=== PATIENT | male | born 1945 | race African-American/Black ===

== ENCOUNTER 2017-03-11 06:46 | Observation (INO) | payer OTHER ==
[~2017-03-11] VITALS: Ht 185.4 cm; Wt 100.0 kg
[2017-03-11] VITALS (10 sets, daily range): BP systolic 126–153; BP diastolic 58–95; PULSE 51–82; RESP 16–18; TEMP 97.7–99.4; O2SAT 92–97
[~2017-03-11 06:46] MED LIST: 1-ME1LIQ PO; APIX5TAB PO; LISI-360 PO; PROT40TA PO
--- NOTE | 2017-03-11 07:13 | PD ---
HPI Chief Complaint: Syncope/Near-Syncope Time Seen by Provider: 07:13 Travel History International Travel<30 days: No Contact w/Intl Traveler<30days: No Traveled to known affect area: No History of Present Illness HPI 71-year-old male came to the emergency room with history of lightheadedness and near syncopal episode this morning. Patient says he was up since 3:00 this morning going repeatedly to the bathroom to urinate. Patient says this happens to him when he drinks a lot of fluid. Also he was getting chills at night. This morning when he went to the bathroom again he got extremely lightheaded and almost passed out. He called for his who then called EMS. Patient denies of any syncopal episode. His temperature was 99.5 in triage. He says he feels weak currently. No history of chest pain. He has had a cough for a month or 2 now. No history of vomiting or diarrhea. No history of dysuria or hematuria. He is not on any diuretics. [facility] Past Medical History Narrative Medical List of his past medical, surgical, social and family history was reviewed from the nursing note. Hx Anticoagulant Therapy: Yes Atrial Fibrillation: Yes Heart Rhythm Problems: Yes (AFIB) Cardiac Catheterization: No Cardiovascular Problems: Yes High Cholesterol: No Congestive Heart Failure: No Diabetes: No Diminished Hearing: No GERD: Yes Hypertension: Yes Tetanus Vaccination: Unknown Influenza Vaccination: No Past Surgical History Coronary Artery Bypass Graft: No Other Surgery: Yes (FATTY TUMOR) Family History Family Myocardial Infarction: Yes Social History Alcohol Use: No Tobacco Use: No Substance Use: No Allergies-Medications (Allergen,Severity, Reaction): Coded Allergies: Penicillin (Verified Allergy, Severe, 03/11/17) Comments List of his allergies reviewed from the nursing note. Reported Meds & Prescriptions Reported Meds & Active Scripts Active Reported Pantoprazole (Pantoprazole Sodium) 40 Mg Tab 40 Mg PO DAILY Benzonatate 100 Mg Cap 100 Mg PO TID PRN Eliquis (Apixaban) 5 Mg Tab 5 Mg PO BID Amlodipine Besylate 1 Gm Powder 5 Mg PO DAILY Narrative Medication List of his home medications reviewed from the nursing note. Review of Systems Except as stated in HPI: all other systems reviewed are Neg Physical Exam Narrative GENERAL: Awake, alert, moderate distress SKIN: Focused skin assessment warm/dry. HEAD: Atraumatic. Normocephalic. EYES: Pupils equal and round. No scleral icterus. No injection or drainage. ENT: No nasal bleeding or discharge. Mucous membranes pink and moist. NECK: Trachea midline. No JVD. CARDIOVASCULAR: Regular rate and rhythm. No murmur appreciated. RESPIRATORY: No accessory muscle use. Clear to auscultation. Breath sounds equal bilaterally. GASTROINTESTINAL: Abdomen soft, non-tender, nondistended. Hepatic and splenic margins not palpable. MUSCULOSKELETAL: No obvious deformities. No clubbing. No cyanosis. No edema. NEUROLOGICAL: Awake and alert. No obvious cranial nerve deficits. Motor grossly within normal limits. Normal speech. PSYCHIATRIC: Appropriate mood and affect; insight and judgment normal. Data Data Last Documented VS Vital Signs Date Time Temp Pulse Resp B/P Pulse Ox O2 Delivery O2 Flow Rate FiO2 03/11/17 10:00 82 16 137/84 95 Room Air 03/11/17 06:49 99.4 Orders Electrocardiogram (03/11/17 07:18) Complete Blood Count With Diff (03/11/17 07:18) Comprehensive Metabolic Panel (03/11/17 07:18) Lactic Acid Sepsis Protocol (03/11/17 07:18) Urinalysis - C+S If Indicated (03/11/17 07:18) Blood Culture (03/11/17 07:18) Chest, Single Ap (03/11/17 07:18) Blood Glucose (03/11/17 07:18) Ecg Monitoring (03/11/17 07:18) Iv Access Insert/Monitor (03/11/17 07:18) Oximetry (03/11/17 07:18) Oxygen Administration (03/11/17 07:18) Troponin I (03/11/17 07:18) Sodium Chlorid 0.9% 500 Ml Inj (Ns 500 M (03/11/17 09:15) Ct Pulmonary Angiogram (03/11/17 ) Iohexol 350 Inj (Omnipaque 350 Inj) (03/11/17 10:07) Levofloxacin 500 Mg Premix Inj (Levaquin (03/11/17 11:00) Admit Order (Ed Use Only) (03/11/17 12:04) Labs Laboratory Tests Test 03/11/17 03/11/17 07:28 08:55 White Blood Count 6.3 TH/MM3 Red Blood Count 4.29 MIL/MM3 Hemoglobin 13.3 GM/DL Hematocrit 39.3 % Mean Corpuscular Volume 91.6 FL Mean Corpuscular Hemoglobin 31.0 PG Mean Corpuscular Hemoglobin 33.9 % Concent Red Cell Distribution Width 14.7 % Platelet Count 214 TH/MM3 Mean Platelet Volume 7.9 FL Neutrophils (%) (Auto) 85.7 % Lymphocytes (%) (Auto) 8.1 % Monocytes (%) (Auto) 5.8 % Eosinophils (%) (Auto) 0.2 % Basophils (%) (Auto) 0.2 % Neutrophils # (Auto) 5.4 TH/MM3 Lymphocytes # (Auto) 0.5 TH/MM3 Monocytes # (Auto) 0.4 TH/MM3 Eosinophils # (Auto) 0.0 TH/MM3 Basophils # (Auto) 0.0 TH/MM3 CBC Comment DIFF FINAL Differential Comment Sodium Level 141 MEQ/L Potassium Level 3.8 MEQ/L Chloride Level 106 MEQ/L Carbon Dioxide Level 26.6 MEQ/L Anion Gap 8 MEQ/L Blood Urea Nitrogen 19 MG/DL Creatinine 1.61 MG/DL Estimat Glomerular Filtration 51 ML/MIN Rate Random Glucose 99 MG/DL Lactic Acid Level 1.5 mmol/L Calcium Level 8.8 MG/DL Total Bilirubin 0.8 MG/DL Aspartate Amino Transf 15 U/L (AST/SGOT) Alanine Aminotransferase 19 U/L (ALT/SGPT) Alkaline Phosphatase 52 U/L Troponin I LESS THAN 0.02 NG/ML Total Protein 7.4 GM/DL Albumin 3.9 GM/DL Urine Color YELLOW Urine Turbidity CLEAR Urine pH 7.0 Urine Specific [place] 1.016 Urine Protein TRACE mg/dL Urine Glucose (UA) NEG mg/dL Urine Ketones NEG mg/dL Urine Occult Blood TRACE Urine Nitrite NEG Urine Bilirubin NEG Urine Urobilinogen LESS THAN 2.0 MG/DL Urine Leukocyte Esterase TRACE Urine RBC 3 /hpf Urine WBC 1 /hpf Urine Squamous Epithelial <1 /hpf Cells Urine Mucus FEW /lpf Microscopic Urinalysis Comment CULT NOT INDICATED MDM Medical Decision Making Medical Screen Exam Complete: Yes Emergency Medical Condition: Yes Medical Record Reviewed: Yes Interpretation(s) Twelve-lead EKG was reviewed by me. Normal sinus rhythm, left axis deviation, lateral and inferior T-wave inversions. Heart rate of 65 per minute. Differential Diagnosis UTI, sepsis, dehydration, electrolyte abnormality, pneumonia, PE Narrative Course 9:22 AM blood test results of back and patient has some renal insufficiency which could be from dehydration. He was given IV fluid 1 L bolus and I have ordered 500 cc more. White count has a left shift. I'm waiting for his UA and CT pulmonary angiogram to rule out PE. 11:45 AM I discussed with the who was now in the room. She explained to me that today she realized that patient was back and forth multiple times from the bathroom into the bedroom which is not unusual. But at one point she heard a thud and she went running to check on him and found him laying on the floor. He was not unconscious and his color was close to his normal. He was not extremely sweaty either. But she called 911 at that point. She also says four weeks ago when they were in the jainism he was sitting and slowly slumped over and passed out. At that time his eyes rolled back and he became extremely diaphoretic. Once again 911 was called and patient was taken to [facility]. He had CAT scan of his head and blood test done and eventually discharged from the ER with the diagnosis of sinusitis. He was given a course of Z-Rogelio which patient has finished. Patient has a process designer but he has not seen his process designer since the last event. is concerned because they were planning to go on a cruise on March 18 and she wants to make sure that he is okay. Given this story and the recent past history I am concerned if the patient has been having arrhythmia that is causing these events. Last time he was not admitted for any observation or any Holter monitoring. I have recommended that I would try to keep him in the hospital for at least 24-48 hour observation and the was thankful for that. Awaiting for the hospitalist to call back at this point. Patient's CAT scan of his chest did not show any PE but did show groundglass opacity in the right lower lobe and small one in right upper lobe. The concern is if this could be aspiration pneumonia which again would go in the fever of syncope/near syncope. Procedures EKG Prior to Arrival: No Diagnosis Primary Impression: Near syncope Additional Impressions: Pneumonia Qualified Code: J18.1 - Pneumonia of right lower lobe due to infectious organism Aspiration pneumonia Qualified Code: J69.0 - Aspiration pneumonia of right lower lobe, unspecified aspiration pneumonia type Admitting Information Admitting Physician Requests: Observation Scripts Levofloxacin (Levaquin)750 Mg Tmdywl131 Mg PO DAILY #7 TAB Prov:Brent Mtz DO 03/12/17 Clindamycin (Cleocin)150 Mg Cep212 Mg PO Q6HR #28 CAP Prov:Brent Mtz DO 03/12/17 Richar Haney MD Mar 11, 2017 07:13
[2017-03-11] MEDS ORDERED: AMLO1POW4 PO (07:40)
[2017-03-11] MEDS ORDERED: BENZ1CAP8 PO (07:40)
[2017-03-11] MEDS ORDERED: APIX5TAB PO (07:40)
[2017-03-11] MEDS ORDERED: PANT40TA3 PO (07:41)
[2017-03-11 07:43] LABS: AUTOMATED NEUTROPHIL # 5.4 TH/MM3 (1.8-7.7); BASOPHIL % 0.2 % (0.0-2.0); EOSINOPHIL % 0.2 % (0.0-4.0); HEMATOCRIT 39.3 % (39.0-51.0); HEMO FLAGS DIFF FINAL; LYMPH % 8.1 % (9.0-44.0); LYMPHOCYTE # 0.5 TH/MM3 (1.0-4.8); MEAN CELL VOLUME 91.6 FL (80.0-100.0); MEAN CORPUSCULAR HGB CONC 33.9 % (32.0-36.0); MONO % 5.8 % (0.0-8.0); NEUT % 85.7 % (16.0-70.0); PLATELET COUNT 214 TH/MM3 (150-450); RED BLOOD COUNT 4.29 MIL/MM3 (4.50-5.90); RED CELL DISTRIBUTION WIDTH 14.7 % (11.6-17.2); WHITE BLOOD COUNT 6.3 TH/MM3 (4.0-11.0)
--- NOTE | 2017-03-11 07:52 | RADRPT ---
EXAM DATE/TIME: 03/11/2017 07:40 [facility] COMPARISON: CHEST SINGLE AP, January 01, 2016, 17:33. INDICATIONS : Syncope. MEDICAL HISTORY : Stroke. Hypertension SURGICAL HISTORY : None. ENCOUNTER: Initial ACUITY: 1 day PAIN SCORE: 0/10 LOCATION: Bilateral chest FINDINGS: Portable AP view of the chest demonstrates a normal-sized cardiac silhouette. Lungs are underinflated with subtle linear opacities at the lung bases. No effusion, consolidation, or pneumothorax is ident ified. Bones and soft tissues demonstrate no acute finding. CONCLUSION: Underinflation with atelectasis at the lung bases. Otherwise, no acute cardiopulmonary abnormality is identified. Jonathan Saul MD on March 11, 2017 at 7:50 Board Certified Radiologist. This report was verified electronically.
[2017-03-11 07:58] LABS: ALT (GPT) 19 U/L (12-78); ANION GAP 8 MEQ/L (5-15); AST (GOT) 15 U/L (15-37); BICARBONATE 26.6 MEQ/L (21.0-32.0); BLOOD UREA NITROGEN 19 MG/DL (7-18); CHLORIDE 106 MEQ/L (98-107); GLOMERULAR FILTRATION RATE 51 ML/MIN (>89); POTASSIUM 3.8 MEQ/L (3.5-5.1); SODIUM (NA) 141 MEQ/L (136-145)
[2017-03-11 08:02] LABS: ALKALINE PHOSPHATASE 52 U/L (45-117); TOTAL BILIRUBIN ADULT 0.8 MG/DL (0.2-1.0)
[2017-03-11] MEDS ORDERED: SODIUM CHLORID 0.9% 500 ML INJ 500 ML IV ONE (09:15)
[2017-03-11 09:16] LABS: BLOOD, URINE TRACE (NEG); COMMENT (UR) CULT NOT INDICATED; CULTURE IF INDICATED CULT NOT INDICATED; GLUCOSE,URINE NEG (NEG); KETONE, URINE NEG (NEG); MUCUS URINE FEW /lpf (OCC); NITRITE,URINE NEG (NEG); SQUAMOUS EPITHELIAL CELL URINE <1 /hpf (0-5); URINE COLOR YELLOW (YELLW/STRAW)
[2017-03-11] MEDS ORDERED: IOHEXOL 350 MG/ML 10 ML VIAL (for RAD DIAG) IV ONE (10:07)
--- NOTE | 2017-03-11 10:33 | RADRPT ---
EXAM DATE/TIME: 03/11/2017 09:54 [facility] COMPARISON: No previous studies available for comparison. INDICATIONS : Weakness, dizziness, near-syncopal episode. IV CONTRAST: cc Omnipaque 350 (iohexol) IV RADIATION DOSE: 21.39 CTDIvol (mGy) MEDICAL HISTORY : Cardiovascular disease. Hypertension. Gastroesophageal reflux disease. SURGICAL HISTORY : None. ENCOUNTER: Initial ACUITY: 1 day PAIN SCALE: 0/10 LOCATION: chest TECHNIQUE: Volumetric scanning of the chest was performed using a pulmonary embolism protocol MIP images were re constructed. Using automated exposure control and adjustment of the mA and/or kV according to patien t size, radiation dose was kept as low as reasonably achievable to obtain optimal diagnostic quality images. DICOM format image data is available electronically for review and comparison. Follow-up recommendations for incidentally detected pulmonary nodules are based at a minimum on nodul e size and patient risk factors according to Fleischner Society Guidelines. FINDINGS: PULMONARY ARTERIES: No filling defects are seen in the pulmonary arteries through the segmental level. LUNGS: Diffuse patchy groundglass opacities involving the right lower lobe and small focal region of the rig ht upper lobe. Minimal ground glass opacities in the left lung base likely reflect volume loss. PLEURAE: There is no pleural thickening or pleural effusion. MEDIASTINUM: Calcified mediastinal hilar nodes consistent with prior granulomatous disease. Heart is normal in luis earance without significant pericardial effusion. MUSCULOSKELETAL: Within normal limits for patient age. MISCELLANEOUS: The visualized upper abdominal organs demonstrate no acute abnormality. CONCLUSION: 1. No CT evidence for pulmonary embolism to the subsegmental level as questioned. 2. Patchy diffuse ground glass opacities involving the right lower lobe and small focal region of rig ht upper lobe. Differential considerations include pneumonia, aspiration or inflammatory etiologies. Hayes Stubbs MD on March 11, 2017 at 10:05 Board Certified Radiologist. This report was verified electronically.
[2017-03-11] MEDS ORDERED: LEVOFLOXACIN 500 MG PREMIX INJ 100 ML IV ONE (11:00)
[2017-03-11] MEDS ORDERED: SENNOSIDES 8.6 MG TAB PO PRN (12:15)
[2017-03-11] MEDS ORDERED: BISACODYL 10 MG SUPP RECTAL PRN (12:15)
[2017-03-11] MEDS ORDERED: LACTULOSE SYRUP 20 GM/30 ML CUP PO PRN (12:15)
[2017-03-11] MEDS ORDERED: NALOXONE HCL 0.4 MG/ML AMP IV PRN (12:15)
[2017-03-11] MEDS ORDERED: ACETAMINOPHEN 325 MG TAB PO PRN (12:15)
[2017-03-11] MEDS ORDERED: SODIUM CHLORIDE 0.9% FLUSH 10 ML FLUSH IV FLUSH PRN (12:15)
[2017-03-11] MEDS ORDERED: ONDANSETRON HCL 4 MG/2 ML VIAL IVP PRN (12:15)
[2017-03-11] MEDS ORDERED: MAGNESIUM HYDROXIDE SUSP 30 ML CUP PO PRN (12:15)
[2017-03-11] MEDS: SODIUM CHLOR 0.9% 1000 ML INJ 1,000 ML IV SCH ×2 (14:12→22:09)
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
--- NOTE | 2017-03-11 15:19 | EKG ---
Date Performed: 03/11/2017 Time Performed: 07:42:09 PTAGE: 71 years EKG: Sinus rhythm BORDERLINE LEFT AXIS DEVIATION MODERATE T-WAVE ABNORMALITY, CONSIDER ANTEROLATERAL ISCHEMIA. When co mpared to previous tracing, the patient is no longer Bradycardic and now has anterolateral T wave pot entially Consistent with ischemia. Clinical corralation suggested. ABNORMAL ECG PREVIOUS TRACING : 01/02/2016 00.07 DOCTOR: Tamica Oliveira Interpretating Date/Time 03/11/2017 15:18:38
[2017-03-11] MEDS: metroNIDAZOLE 500 MG TAB PO SCH ×2 (15:34→22:08)
[2017-03-11] MEDS: PANTOPRAZOLE SOD 40 MG DELAYED RELEASE TAB PO SCH (15:35)
--- NOTE | 2017-03-11 15:58 | RADRPT ---
EXAM DATE/TIME: 03/11/2017 15:03 [facility] COMPARISON: No previous studies available for comparison. INDICATIONS : Syncope. MEDICAL HISTORY : Hypertension. Gastroesophageal reflux disease. Claustrophobia. A-fib. SURGICAL HISTORY : Fatty tumor removed from arm and upper back. ENCOUNTER: Initial ACUITY: 2 days PAIN SCORE: 3/10 LOCATION: Bilateral neck PEAK SYSTOLIC VELOCITIES (cm/sec): ICA/CCA RATIO: Right: 0.8 Left: 0.7 ICA: Right: 83 Left: 96 CCA: Right: 101 Left: 150 ECA: Right: 105 Left: 79 VERTEBRAL: Right: 65 antegrade Left: 85 antegrade Elevated flow velocities and ICA/CCA ratios have been found to correlate with increased degrees of vessel stenosis, calculated as percentage of diameter relative to a normal segment of distal ICA/CCA FINDINGS: RIGHT CAROTID: No significant flow is demonstrated in the mid to distal ICA although grayscale imaging does not demo nstrate any significant luminal abnormality. The waveforms are within normal limits. LEFT CAROTID: No significant stenosis is visualized. The waveforms are within normal limits. VERTEBRAL ARTERIES: Antegrade flow is seen in both vertebral arteries. MISCELLANEOUS: None. CONCLUSION: 1. Flow was not documented in the mid to distal right ICA despite relatively unremarkable appearance on mehta scale imaging. This may reflect high-grade stenosis or occlusion in the distal ICA. Recommend CT examination for further evaluation. 2. No significant flow-limiting left carotid stenosis. 3. Antegrade vertebral artery flow bilaterally. Hayes Stubbs MD on March 11, 2017 at 15:43 Board Certified Radiologist. This report was verified electronically.
[2017-03-11] MEDS: SODIUM CHLORIDE 0.9% FLUSH 10 ML FLUSH IV FLUSH SCH (22:07)
[2017-03-11] MEDS: APIXABAN 5 MG TABLET PO SCH (22:08)
[2017-03-11] MEDS: DOCUSATE SODIUM 50 MG/SENNA 8.6 MG TAB PO SCH (22:08)
[2017-03-12 03:27] VITALS: BP 117/56; PULSE 54; RESP 16; TEMP 98.6; O2SAT 95
[2017-03-12] MEDS: metroNIDAZOLE 500 MG TAB PO SCH (06:26)
[2017-03-12] MEDS: SODIUM CHLOR 0.9% 1000 ML INJ 1,000 ML IV SCH ×2 (06:26→09:30)
[2017-03-12 07:44] LABS: AUTOMATED NEUTROPHIL # 4.4 TH/MM3 (1.8-7.7); BASOPHIL % 0.3 % (0.0-2.0); EOSINOPHIL # 0.1 TH/MM3 (0-0.4); EOSINOPHIL % 1.3 % (0.0-4.0); HEMATOCRIT 34.3 % (39.0-51.0); HEMO FLAGS DIFF FINAL; LYMPH % 23.7 % (9.0-44.0); LYMPHOCYTE # 1.5 TH/MM3 (1.0-4.8); MEAN CORPUSCULAR HEMOGLOBIN 31.2 PG (27.0-34.0); MEAN CORPUSCULAR HGB CONC 34.3 % (32.0-36.0); MONO % 4.9 % (0.0-8.0); NEUT % 69.8 % (16.0-70.0); PLATELET COUNT 187 TH/MM3 (150-450); RED BLOOD COUNT 3.77 MIL/MM3 (4.50-5.90); RED CELL DISTRIBUTION WIDTH 14.7 % (11.6-17.2); WHITE BLOOD COUNT 6.2 TH/MM3 (4.0-11.0)
[2017-03-12 08:06] LABS: BICARBONATE 25.8 MEQ/L (21.0-32.0); POTASSIUM 3.5 MEQ/L (3.5-5.1)
--- NOTE | 2017-03-12 08:24 | HHI.PR ---
Subjective Remarks Follow up for possible aspiration pneumonia. Patient is doing well. Not on any supplemental O2. Coughed a lot last night. No fever, chills. Objective Vitals Vital Signs Date Time Temp Pulse Resp B/P Pulse Ox O2 Delivery O2 Flow Rate FiO2 03/12/17 08:11 21 03/12/17 03:27 98.6 54 16 117/56 95 03/11/17 23:49 97.7 51 17 126/58 95 03/11/17 20:29 98.3 60 18 139/77 94 142/82 153/95 03/11/17 16:13 98.4 61 18 142/72 95 128/77 136/83 03/11/17 15:43 58 03/11/17 10:00 82 16 137/84 95 Room Air 03/11/17 09:00 68 18 126/75 96 Room Air I/O 03/11/17 03/11/17 03/11/17 03/12/17 03/12/17 03/12/17 07:00 15:00 23:00 07:00 15:00 23:00 Intake Total 440 ml 200 ml Balance 440 ml 200 ml Intake Oral 440 ml 200 ml Result Diagram: 03/12/17 0640 03/12/17 0640 Imaging Last Impressions Chest X-Ray 03/11/17 0718 Signed Impressions: Service Date/Time: March 07:40 - CONCLUSION: Underinflation with atelectasis at the lung bases. Otherwise, no acute cardiopulmonary abnormality is identified. Jonathan Saul MD Carotid Artery Ultrasound 03/11/17 0000 Signed Impressions: Service Date/Time: March 15:03 - CONCLUSION: 1. Flow was not documented in the mid to distal right ICA despite relatively unremarkable appearance on mehta scale imaging. This may reflect high-grade stenosis or occlusion in the distal ICA. Recommend CT examination for further evaluation. 2. No significant flow-limiting left carotid stenosis. 3. Antegrade vertebral artery flow bilaterally. Hayes Stubbs MD CT Angiography 03/11/17 0000 Signed Impressions: Service Date/Time: March 09:54 - CONCLUSION: 1. No CT evidence for pulmonary embolism to the subsegmental level as questioned. 2. Patchy diffuse ground glass opacities involving the right lower lobe and small focal region of right upper lobe. Differential considerations include pneumonia , aspiration or inflammatory etiologies. Hayes Stubbs MD Objective Remarks GENERAL: Alert, oriented x 3, NAD. SKIN: Warm and dry. HEAD: Normocephalic. EYES: No scleral icterus. No injection or drainage. NECK: Supple, trachea midline. No JVD or lymphadenopathy. CARDIOVASCULAR: Regular rate and rhythm without murmurs, gallops, or rubs. RESPIRATORY: Breath sounds equal bilaterally. No accessory muscle use. GASTROINTESTINAL: Abdomen soft, non-tender, nondistended. MUSCULOSKELETAL: No cyanosis, or edema. BACK: Nontender without obvious deformity. No CVA tenderness. Procedures None. A/P Assessment and Plan 71-year-old male with past medical history of GERD, A. fib, HTN, TIA, possible carotid stenosis who presented for near syncopal episode Near syncope: Unclear etiology. Differential includes secondary to pneumonia as below, carotid stenosis, arrhythmia, etc. EKG reviewed and shows NSR, nonspecific T-wave changes somewhat similar to previous. - Monitor on telemetry, consider Holter at NH. Consider cardiology consult if significant arrhythmias are found overnight. - Carotid US could not detect flow in the mid to distal right ICA. CTA carotid pending. - orthostatics unremarkable. - PT eval pending. Pneumonia: Patient does complain of fatigue with exertion and low-grade temp at home. Reviewed: Chest x-ray with lung base atelectasis. Pulmonary angiogram shows no PE, patchy, diffuse groundglass opacities involving the right lower lobe and small focal reason of the right upper lobe; differentials include pneumonia, aspiration, or inflammatory changes. - Antibiotics with Levaquin and Flagyl - D/C Flagyl and replace it with Clindamycin. We can discharge patient on Levaquin and Clindamycin. Pt is allergic to PCN - Swallow eval to rule out aspiration CKD: Creatinine 1.61, previously 1.51 on 01/01/17. Improved to 1.50 today. Baseline. Atrial fibrillation: Chronic. Paroxysmal. Continue Eliquis. Hypertension: Chronic, controlled. Continue amlodipine. GERD: Continue PPI. DVT prophylaxis: On Eliquis Discharge plan: If CTA carotid arteries does not reveal anything significant, will likely discharge patient home with oral antibiotics today. Brent Mtz DO Mar 12, 2017 8:24 am
[2017-03-12] MEDS ORDERED: LEVOFLOXACIN 750 MG TAB PO SCH (09:00)
[2017-03-12] MEDS: SODIUM CHLORIDE 0.9% FLUSH 10 ML FLUSH IV FLUSH SCH (09:00)
[2017-03-12] MEDS: DOCUSATE SODIUM 50 MG/SENNA 8.6 MG TAB PO SCH (09:00)
[2017-03-12] MEDS ORDERED: amLODIPine BESYLATE 5 MG TAB PO SCH (09:00)
[2017-03-12] MEDS: PANTOPRAZOLE SOD 40 MG DELAYED RELEASE TAB PO SCH (09:28)
[2017-03-12] MEDS: APIXABAN 5 MG TABLET PO SCH (09:28)
[2017-03-12 10:13] VITALS: BP_SYST 120; BP_SYST 126; BP_SYST 149; BP_DIAS 69; BP_DIAS 75; BP_DIAS 93; PULSE 60; RESP 18; TEMP 97.8; O2SAT 96
[2017-03-12 11:31] VITALS: PULSE 54
[2017-03-12] MEDS ORDERED: CLINDAMYCIN 150 MG CAP PO SCH (12:00)
[2017-03-12] MEDS ORDERED: IOHEXOL 350 MG/ML 10 ML VIAL (for RAD DIAG) IV ONE (12:49)
[2017-03-12] MEDS ORDERED: LACTOBACILLUS ACIDOPHILUS TAB PO SCH (13:00)
--- NOTE | 2017-03-12 13:50 | RADRPT ---
EXAM DATE/TIME: 03/12/2017 12:44 [facility] COMPARISON: US CAROTID ARTERIES, March 11, 2017, 15:03. INDICATIONS : Syncopal episode. Possible right internal carotid artery stenosis. IV CONTRAST: 97 cc Omnipaque 350 (iohexol) IV RADIATION DOSE: 28.71 CTDIvol (mGy) MEDICAL HISTORY : Cardiovascular disease. Hypertension. SURGICAL HISTORY : ENCOUNTER: Initial ACUITY: 1 day PAIN SCALE: 0/10 LOCATION: neck Elevated flow velocities and ICA/CCA ratios have been found to correlate with increased degrees of vessel stenosis, calculated as percentage of diameter relative to a normal segment of distal ICA/CCA. TECHNIQUE: Volumetric scanning was performed using a multirow detector CT scanner. The data was post processed with a variety of visualization algorithms including full-volume maximum intensity projection, multip lanar sliding thin-slab reformation, curved-planar reformation, and surface-rendering techniques. Us ing automated exposure control and adjustment of the mA and/or kV according to patient size, radiatio n dose was kept as low as reasonably achievable to obtain optimal diagnostic quality images. DICOM f ormat image data is available electronically for review and comparison. FINDINGS: AORTIC ARCH: There is a three-vessel origin of the great vessels from the aorta. No evidence of ostial narrowing. RIGHT CAROTID: There is chronic occlusion of the extracranial ICA occurring approximately one centimeters cephalad t o its origin. The visualized portions of the intracranial contents shows contrast opacifying the ante rior cerebral and middle cerebral territories on the right via collateralization from and into commun icating artery and posterior communicating artery. The right common carotid and external carotid jenelle ry did. LEFT CAROTID: The common carotid artery is intact. The carotid bulb has a normal configuration without ulceration or narrowing. The internal carotid artery lumen is smooth without stenosis. The external carotid ar cathie is intact. VERTEBRALS: The vertebral arteries have a symmetric diameter. No stenotic lesions are seen. CONCLUSION: 1. 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 2. Patent left carotid. 3. Patent vertebral arteries. Kade Garrett Jr., MD on March 12, 2017 at 13:18 Board Certified Radiologist. This report was verified electronically.
[2017-03-12] MEDS ORDERED: CLIN150 PO (14:17)
[2017-03-12] MEDS ORDERED: LEVA750T9 PO (14:17)
== END 2017-03-12 17:06 | disposition home or self-care (01) ==
LOC: NEPC 06:46 → NEDA 12:07 → NEPGCP 14:25
PROVIDERS: ADMIT Hospitalist; ATTEND Hospitalist
DX: R55 Syncope and collapse (principal); J18.9 Pneumonia, unspecified organism; I48.2 Chronic atrial fibrillation; I12.9 Hypertensive chronic kidney disease with stage 1 through stage 4 chronic kidney disease, or unspecified chronic kidney disease; N18.9 Chronic kidney disease, unspecified; K21.9 Gastro-esophageal reflux disease without esophagitis; N28.9 Disorder of kidney and ureter, unspecified; R94.31 Abnormal electrocardiogram [ECG] [EKG]; Z79.01 Long term (current) use of anticoagulants; Z86.73 Personal history of transient ischemic attack (TIA), and cerebral infarction without residual deficits; Z79.899 Other long term (current) drug therapy
CPT/HCPCS: 70498; 71010; 71275; 80048; 80053; 81001; 83605; 84484; 85025; 87040; 92610; 93005; 93880; 96361; 96365; 96376; 97161; 99285; G0378; G8987; G8988; G8996; G8997; G8998; J1956; J7030; J7040; Q9967